=== PATIENT | male | born 1975 | race Caucasian/White ===

== ENCOUNTER 2019-12-14 17:05 | Emergency (ER) | payer OTHER ==
[~2019-12-14] VITALS: Ht 157.5 cm; Wt 90.7 kg
[~2019-12-14 17:05] MED LIST: AUGMENTIN 875875 MG PO; NOHOMEMEDICATIONS
[2019-12-14] MEDS ORDERED: EPIPEN 2-P0.3 MG/0.3 IM (20:09)
[2019-12-14] MEDS ORDERED: PEPCID AC20 MG PO (20:09)
[2019-12-14] MEDS ORDERED: BENADRYL25 MG PO (20:09)
[2019-12-14] MEDS ORDERED: PREDNISONE 20 M20 M1 PO (20:09)
[2019-12-14 20:30] VITALS: BP 155/96
== END 2019-12-14 20:36 | disposition home or self-care (01) ==
LOC: ER 17:05
DX: T78.2XXA Anaphylactic shock, unspecified, initial encounter (principal); J45.909 Unspecified asthma, uncomplicated; E78.5 Hyperlipidemia, unspecified; Z91.030 Bee allergy status